=== PATIENT | male | born 1960 | race Caucasian/White ===

== ENCOUNTER 2023-12-20 15:21 | Emergency (ER) | payer OTHER, SELFPAY ==
--- NOTE | 2023-12-20 15:23 | ED.GENMED ---
ED Provider Triage
<Bailey Freedman PA-C - Last Filed: 12/20/23 16:59>
-
Patient seen by provider in Triage?: Seen in Triage
Attestation: A medical screening examination has been initiated by a qualified medical provider. Based on the assessment performed at this time, it has been determined that an emergent medical condition may exist and the patient has been informed
that further medical evaluation and possible additional diagnostic testing may be needed.
HPI: 63yoM here with L ankle swelling and pain. Fractured fibula 1 week ago, currently in a walking boot. Has been seen by orthopedics at [facility]. Called his orthopedist today and sent to ED for concern for DVT.
GENERAL: Alert , in no apparent distress
EYE: No visual abnormalities.
NECK: Trachea midline
ENT: No visible abnormalities.
LUNGS: No acute respiratory distress
NEUROLOGICAL: Alert and oriented
SKIN: Skin intact. No visible changes.
MUSCULOSKELETAL: Moving extremities normally
PSYCH: Normal and appropriate interaction.
This is a medical evaluation conducted in person to initiate diagnostic evaluation and provide initial therapeutics. Please see further documentation by the treating clinician.
Erythema with blistering noted to foot/ankle. 2+ DP pulse present. CBC, CMP, and venous duplex ordered.
History of Present Illness
<Bailey Freedman PA-C - Last Filed: 12/20/23 16:59>
General
Chief Complaint: Musculo-Skeletal Complaint
Time Seen by Provider: 12/20/23 16:18
<MARY Guzman - Last Filed: 12/20/23 21:28>
General
Source: patient
Exam Limitations: none
Nursing documentation reviewed up to this point in time: agreed with
History of Present Illness
History of Present Illness:
Patient is a 62-year-old male presents today for evaluation. Patient injured his left ankle 1 week ago and last Tuesday 6 days ago. On Tuesday 6 days ago saw Ortho(DR Freeman at [facility]). He has been using a boot and crutches. He reports he
has been trying to take off the boot and elevated his left ankle as much as possible but complains of increasing swelling and redness. He has had 2 blisters to the area 1 on the medial aspect of his ankle 1 on the top of his foot however he
reports a blister just popped along the medial aspect. He reports Dr Freeman has seen the blisters.
He denies any fever/chills.
Past History
<Bailey Freedman PA-C - Last Filed: 12/20/23 16:59>
Past History
ED Past Medical History: Asthma and Other (Obstructive sleep apnea)
ED Past Surgical History: None
Social History
Tobacco: Non-smoker
Personal:
Employment: Employed
Review of Systems
<MARY Guzman - Last Filed: 12/20/23 21:28>
Review of Systems
Allergies reviewed?: Yes
All Other Systems: ROS reviewed and negative except as documented in HPI and ROS
Constitutional: Reports no symptoms; Denies fever
Respiratory: Reports no symptoms
Cardiac: Reports no symptoms
ABD/GI: Reports no symptoms
Musculoskeletal: Reports other (left foot/ankle redness + blisters increased pain )
Skin: Reports other (see above )
Neurological: Reports no symptoms
Psychiatric: Reports no symptoms
Phy Exam
<MARY Guzman - Last Filed: 12/20/23 21:28>
General Physical Exam
General Presentation: no apparent distress
General age: appears stated age
General Skin: warm and dry
General Habitus: normal
General Mental: alert
General Hydration: appears well hydrated
Neurological Exam
Neurological Exam: alert and oriented x3
Musculoskeletal Exam
Musculoskeletal Exam: other (LLE with strong pulses + swelling to ankle and foot region mild swelling to lower leg positive erythema to dorsal foot and ankle area with blister on the dorsal aspect of his left lateral dorsal foot and + open wound
to inner ankle + weeping )
Skin Exam
Skin Exam: normal color and warm/dry
Psychiatric Exam
Psychiatric Exam: normal mood/affect
Course
Sarahlt;Bailey Freedman PA-C - Last Filed: 12/20/23 16:59>
Orders/Labs/Results
Orders:
Orders
12/20/23 15:32
Venous Doppler Lwr Ext Left [US Periph Venous LOWER Ext LT] Urgent
Comment:
Reason For Exam: L foot/leg swelling, recent fracture
12/20/23 15:37
Complete Blood Count/With Diff Urgent
Comprehensive Metabolic Panel Urgent
12/20/23 18:27
Cephalexin Monohydrate [Keflex] 500 mg PO NOW STA
Abnormal Lab Results
12/20/23
15:37
Absolute Neuts (auto) 6.8 H 10^3/uL
(1.4-6.5)
Absolute Monos (auto) 0.7 H 10^3/uL
(0.1-0.6)
Lymphocytes % 15.3 L %
(20.5-51.1)
Glucose 101 H mg/dl
(70-99)
12/20/23 15:37
12/20/23 15:37
Vital Signs
Initial and Last Documented VS:
Initial Vital Signs
Temp Pulse Resp BP Pulse Ox
98.3 F 78 18 161/78 94
12/20/23 15:24 12/20/23 15:24 12/20/23 15:24 12/20/23 15:24 12/20/23 15:24
Last Documented Vital Signs
Temp Pulse Resp BP Pulse Ox
98.3 F 78 18 161/78 94
12/20/23 15:24 12/20/23 15:24 12/20/23 15:24 12/20/23 15:24 12/20/23 15:24
<MARY Guzman - Last Filed: 12/20/23 21:28>
Orders/Labs/Results
Orders:
Orders
12/20/23 15:32
Venous Doppler Lwr Ext Left [US Periph Venous LOWER Ext LT] Urgent
Comment:
Reason For Exam: L foot/leg swelling, recent fracture
12/20/23 15:37
Complete Blood Count/With Diff Urgent
Comprehensive Metabolic Panel Urgent
12/20/23 18:27
Cephalexin Monohydrate [Keflex] 500 mg PO NOW STA
Abnormal Lab Results
12/20/23
15:37
Absolute Neuts (auto) 6.8 H 10^3/uL
(1.4-6.5)
Absolute Monos (auto) 0.7 H 10^3/uL
(0.1-0.6)
Lymphocytes % 15.3 L %
(20.5-51.1)
Glucose 101 H mg/dl
(70-99)
12/20/23 15:37
12/20/23 15:37
Vital Signs
Initial and Last Documented VS:
Initial Vital Signs
Temp Pulse Resp BP Pulse Ox
98.3 F 78 18 161/78 94
12/20/23 15:24 12/20/23 15:24 12/20/23 15:24 12/20/23 15:24 12/20/23 15:24
Last Documented Vital Signs
Temp Pulse Resp BP Pulse Ox
98.3 F 78 18 161/78 94
12/20/23 15:24 12/20/23 15:24 12/20/23 15:24 12/20/23 15:24 12/20/23 15:24
<Aldo Rivero DO - Last Filed: 12/20/23 17:44>
Orders/Labs/Results
Orders:
Orders
12/20/23 15:32
Venous Doppler Lwr Ext Left [US Periph Venous LOWER Ext LT] Urgent
Comment:
Reason For Exam: L foot/leg swelling, recent fracture
12/20/23 15:37
Complete Blood Count/With Diff Urgent
Comprehensive Metabolic Panel Urgent
12/20/23 18:27
Cephalexin Monohydrate [Keflex] 500 mg PO NOW STA
Abnormal Lab Results
12/20/23
15:37
Absolute Neuts (auto) 6.8 H 10^3/uL
(1.4-6.5)
Absolute Monos (auto) 0.7 H 10^3/uL
(0.1-0.6)
Lymphocytes % 15.3 L %
(20.5-51.1)
Glucose 101 H mg/dl
(70-99)
12/20/23 15:37
12/20/23 15:37
Vital Signs
Initial and Last Documented VS:
Initial Vital Signs
Temp Pulse Resp BP Pulse Ox
98.3 F 78 18 161/78 94
12/20/23 15:24 12/20/23 15:24 12/20/23 15:24 12/20/23 15:24 12/20/23 15:24
Last Documented Vital Signs
Temp Pulse Resp BP Pulse Ox
98.3 F 78 18 161/78 94
12/20/23 15:24 12/20/23 15:24 12/20/23 15:24 12/20/23 15:24 12/20/23 15:24
<MARY Guzman - Last Filed: 12/20/23 21:28>
MDM/Problems Addressed
Differential Diagnosis Includes:
Not limited to fracture blister, cellulitis
MDM/Problems Addressed:
Patient is a 63-year-old male who has a fracture to his left fibula injury occurred 1 week ago seen by [facility] orthopedics Dr. Freeman and since then has had increasing redness to the area .he does tell me that he has has blistering and
orthopedics was aware. On exam foot is swollen and mildly red there is wound to the medial ankle that was a prior blister and patient presented with a blister to the left dorsal foot which I did open and drained clear yellow fluid. Will treat with
Keflex however patient will need close outpatient by orthopedics for skin check as well. I did speak with Dr. Abdalla (ortho supervisor [employer] for [facility] ) Pt does not feel that he can use crutches on his own and therefore we will hold off on splint and
will keep in boot. Ortho made aware. As discussed with orthopedics will follow-up with patient in the next several days for re-check .
Discussed with patient to return if any worsening of symptoms including increased pain fever and redness. He was instructed to loosen boot when he is resting with foot elevated .
<MARY Guzman - Last Filed: 12/20/23 21:28>
*Critical Care Note
Total Time (30-74mins, 75-104mins- exclusive of procedures): Not Applicable
ED Attending Note
<Bailey Freedman PA-C - Last Filed: 12/20/23 16:59>
-
Portions of this chart may have been created with voice recognition software.� Occasional wrong word or��sound alike� substitutions may have occurred due to the inherent limitations of voice recognition software.
<Aldo Rivero DO - Last Filed: 12/20/23 17:44>
ED Attending Note
Patient seen and examined by attending physician: Yes
I performed the substantive portion of visit, reviewed & personally made and approve the management plan that is documented in note by myself or ZULMA.: Yes
ED Attending Note:
seen with LEGAL BILLING SPECIALIST, fibular fx --UC, boot, saw outpt ortho in [facility], has fracture blisters, plan keflex elevation, f/u ortho
Discharge Plan
Departure
Patient Disposition: Home (Routine Discharge)
Date of Disposition: 12/20/23
Time of Disposition: 20:01
Patient with high blood pressure during this ER visit?: Yes
Condition: Fair
Covid-19: Not Applicable
Discharge Problem:
Fracture blister
Prescriptions:
New
cephalexin 500 mg capsule
500 mg PO Q6H Qty: 28 0RF
No Action
albuterol [Proventil] 17 GM aerosol
17 gm IH QIDPRN PRN (Reason: wheezing) Qty: 1 0RF
Lisinopril
1 tab PO DAILY
Maintenance Med For Asthma
1 dose inhalation DAILY
Referrals:
Sterling Rodarte MD [Family Provider] -
Activity Restrictions/Additional Instructions:
As discussed a prescription for antibiotic was sent to pharmacy take as directed. Wear your boot however as discussed keep this elevated as much as possible and while elevating try to loosen all the straps .
Limit weightbearing
Please call your orthopedic doctor and see either Dr. Freeman or one of his colleagues physicians in the next 2 to 3 days for wound check and reevaluation of symptoms. Return if any worsening of symptoms or increased pain swelling redness red
streaking fever chills.
Interventions
Interventions:
*Risk Screen - Suicide Last Done: 12/20/23 15:27
*Neglect/Abuse Screening Last Done: 12/20/23 15:27
*Nursing Disposition Last Done: 12/20/23 20:52
ED-Musculoskeletal Assessment Last Done: 12/20/23 17:53
Discharge Date and Time
Discharge Date/Time: 12/20/23 20:52
Print Language: ARGENTINE
[2023-12-20 15:24] VITALS: BP 161/78
[2023-12-20 15:48] LABS: % Basophils 0.3 % (0-2); % Eosinophils 1.3 % (0-6); % Immature Granulocytes 0.4 % (0-0.5); % Lymphocytes 15.3 % (20.5-51.1); % Neutrophils 74.7 % (42.2-75.2); Absolute Eosinophils 0.1 10^3/uL (0-0.7); Absolute Lymphocytes 1.4 10^3/uL (1.2-3.4); Absolute Monocytes 0.7 10^3/uL (0.1-0.6); Absolute Neutrophils 6.8 10^3/uL (1.4-6.5); Hematocrit 47.2 % (39.0-52.0); Hemoglobin 16.3 g/dL (13.0-18.0); Mean Corp Hgb Conc. 34.5 g/dL (33.0-37.0); Mean Corpuscular Hgb 29.6 pg (27.0-31.0); Mean Corpuscular Volume 85.7 fL (80.0-94.0); Mean Platelet Volume 10.4 fL (7.4-10.4); Nucleated Red Blood Cells % 0 % (-); Platelet Count 243 10^3/uL (130-400); Red Blood Cell Count 5.51 10^6/uL (4.70-6.10); Red Cell Dist. Width 13.7 % (11.5-14.5)
[2023-12-20 16:10] LABS: ALT (SGPT) 35 U/L (0-50); AST (SGOT) 27 U/L (17-59); Alkaline Phosphatase 69 U/L (38-126); Blood Urea Nitrogen 20 mg/dl (9-20); Calcium 9.1 mg/dl (8.4-10.2); Carbon Dioxide 22 mmol/L (22-30); Chloride 103 mmol/L (98-107); Glucose 101 mg/dl (70-99); Potassium 4.5 mmol/L (3.5-5.1); Sodium 138 mmol/L (135-145); Total Bilirubin 1.3 mg/dl (0.2-1.3); Total Protein 6.7 g/dl (6.3-8.2); eGFR > 60.00
[2023-12-20] MEDS: KEFLEX 500 MG PO (18:31)
== END 2023-12-20 20:52 | disposition home or self-care (01) ==
LOC: EMR 15:21
PROVIDERS: Physician Assistant; EMERGENCY PHYSICIAN Emergency Medicine; FAMILY PHYSICIAN Family Medicine
DX: S82.409D Unspecified fracture of shaft of unspecified fibula, subsequent encounter for closed fracture with routine healing (principal); X58.XXXD Exposure to other specified factors, subsequent encounter; S90.522A Blister (nonthermal), left ankle, initial encounter; X58.XXXA Exposure to other specified factors, initial encounter; R22.42 Localized swelling, mass and lump, left lower limb; M25.572 Pain in left ankle and joints of left foot; J45.909 Unspecified asthma, uncomplicated; G47.33 Obstructive sleep apnea (adult) (pediatric)
CPT/HCPCS: 99284; 80053; 85025; 93971